=== PATIENT | female | born 1980 | race Caucasian/White ===

== ENCOUNTER 2021-02-14 17:00 | Emergency (ER) | payer MEDICAID ==
--- NOTE | 2021-02-14 18:17 | EDM.PDOC ---
ED HPI GENERAL MEDICAL PROBLEM - General Chief Complaint: Bite:Animal, Insect Stated Complaint: BITTEN BY DOG Time Seen by Provider: 02/14/21 17:44 Source of Information: Reports: Patient History Limitations: Reports: No Limitations - History of Present Illness INITIAL COMMENTS - FREE TEXT/NARRATIVE: 40-year-old female presents the emergency department today with dog bite noted to her left index finger. She states that the injury occurred approximately 1 PM today when she was attempting to break up a dog fight. Patient states that she knows that one of the dogs is up-to-date on his vaccinations however she is unsure on the other. She states she is unsure of her tetanus status. 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 Musculoskeletal History: Reports: Other (See Below) Other Musculoskeletal History: pins to left thumb - Infectious Disease History Infectious Disease History: Reports: None - Past Surgical History Female Surgical History: Reports: D&C Social & Family History - Tobacco Use Tobacco Use Status *Q: Current Every Day Tobacco User Years of Tobacco use: 20 Packs/Tins Daily: 1 - Caffeine Use Caffeine Use: Reports: Coffee, Energy Drinks, Soda, Tea - Recreational Drug Use Recreational Drug Use: No ED ROS GENERAL - Review of Systems Review Of Systems: Comprehensive ROS is negative, except as noted in HPI. ED EXAM, ANIMAL BITE - Physical Exam Exam: See Below Exam Limited By: No Limitations General Appearance: Alert, WD/WN, Mild Distress Ears: Normal External Exam, Hearing Grossly Normal Nose: Normal Inspection Throat/Mouth: Normal Inspection, Normal Lips, Normal Voice, No Airway Compromise Head: Atraumatic, Normocephalic Neck: Normal Inspection, Supple Respiratory/Chest: No Respiratory Distress, No Accessory Muscle Use Cardiovascular: Normal Peripheral Pulses, Regular Rate, Rhythm GI/Abdominal: No Distention (Female) Exam: Deferred Rectal (Female) Exam: Deferred Back Exam: Normal Inspection Extremities: Other (Circumferential laceration noted to left index finger starting just below the knuckle and radiating just above the knuckle circumferentially. Bleeding is controlled.) Neurological: Alert, Oriented, Normal Cognition Psychiatric: Normal Affect, Normal Mood Skin Exam: Normal Color, Warm/Dry Lymphatic: No Adenopathy ED ANIMAL BITE PROCEDURES - Laceration/Wound Repair Left Middle Digit - 2nd (Index) Lac/Wound Length In cm: 8 Appearance: Superficial, Other (Dog bite) Distal NVT: Neuro & Vascular Intact Anesthetic Type: Local Local Anesthesia - Lidocaine (Xylocaine): 1% Plain Local Anesthetic Volume: 5cc Exploration/Debridement/Repair: Multiple Flaps Aligned Closed With: Sutures Suture Size: 4-0 # of Sutures: 8 Suture Type: Nylon, Interrupted Course - Vital Signs Text/Narrative:: As stated above patient presents with a dog bite to her left index finger. Exam reveals circumferential laceration noted just below the knuckle on the dorsal aspect of the left index finger and around the knuckle on the palmar aspect. Patient does have decreased flexion extension strength noted to the left index finger. She suspects that the finger may be broken. Will obtain an x-ray of the left index finger and then have nursing staff clean the wound. Patient will need some surgical repair. Last Recorded V/S: Last Vital Signs Temp 98.7 F 02/14/21 17:50 Pulse 72 02/14/21 17:50 Resp 20 02/14/21 17:50 BP 127/59 L 02/14/21 17:50 Pulse Ox 98 02/14/21 17:50 - Orders/Labs/Meds Orders: Active Orders 24 hr Category Date Time Status Fingers Second Digit Lt F1 [CR] Stat Exams 02/14/21 17:56 Taken Meds: Medications Discontinued Medications Generic Name Dose Route Start Last Admin Trade Name Freq PRN Reason Stop Dose Admin Amoxicillin/Clavulanate Potassium 1 tab 02/14/21 19:18 02/14/21 19:27 Amoxicillin/Clavulanate K 875-125 Mg Tab PO 02/14/21 19:19 1 tab ONETIME ONE Administration Ketorolac Tromethamine 60 mg 02/14/21 19:17 02/14/21 19:27 Ketorolac 60 Mg/2 Ml Sdv IM 02/14/21 19:18 60 mg ONETIME ONE Administration Lidocaine HCl 10 ml 02/14/21 19:17 02/14/21 19:27 Lidocaine 1% 10 Ml Mdv INJECT 02/14/21 19:18 10 ml ONETIME ONE Administration - Radiology Interpretation Free Text/Narrative:: Fracture noted to middle phalanx on left index finger. Formal radiologist report is pending - Re-Assessments/Exams Free Text/Narrative Re-Assessment/Exam: 02/14/21 19:10 I phoned [facility] call and spoke with the hand surgeon, . X-rays had been pushed prior to so he was able to review the patient's x-ray. Case was discussed with , and he states that she will need surgery first thing tomorrow morning. Recommends that we clean up the wound, apply a few sutures and splint. Recommends we give the patient Augmentin 875 mg oral. She will need to be n.p.o. after midnight tonight and be at [facility] emergency department by 8 AM central time. He will then repair the fracture. Discussed this plan with the patient and she verbalizes understanding. Have ordered lidocaine 1%. I will do a digital block on the left index finger and place a few stitches in the laceration. 02/14/21 20:04 Wound was prepped and draped in sterile fashion prior to suturing. Departure - Departure Time of Disposition: 20:06 Disposition: Home, Self-Care 01 Condition: Good Clinical Impression: Dog bite of index finger Qualifiers: Encounter type: initial encounter Qualified Code(s): S61.258A - Open bite of other finger without damage to nail, initial encounter; W54.0XXA - Bitten by dog, initial encounter - Discharge Information Prescriptions: Amoxicillin/Potassium Clav [Augmentin 875-125 Tablet] 1 each PO BID #19 tablet Hydrocodone/Acetaminophen [HYDROcodone-Acetaminophen 5-325 MG] 1 each PO Q6H PRN #10 tab PRN Reason: Pain (Moderate 4-6) Referrals: Mari Briggs, SCRAPER LOADER OPERATOR [Primary Care Provider] - Forms: ED Department Discharge Additional Instructions: You were seen in the emergency department today after sustaining a dog bite to your left index finger. X-rays were completed and you do have a fracture noted. Did discuss the case with the on-call hand surgeon, , at [facility] in [place]. He recommends we cleaned the wound and stitched up and place a splint. Leave the splint in place at all times. Nothing to eat or drink after midnight tonight. You will need to be at the emergency department at [facility] in [place] by 8 AM central time. They will then take you to surgery to repair your finger. While you are in the emergency department you did get an antibiotic. You will need to take this twice daily for the next 10 days time. I have sent a prescription for this antibiotic to [facility] in [place]. I have also sent a prescription for a narcotic pain medication called hydrocodone to [facility] in [place]. You may take 1 tab every 6 hours as needed for moderate pain. Recommend that you take 1 before bed tonight as the digital block will likely be starting to wear off. Keep in mind that this is a narcotic medication and you cannot drive or operate heavy machinery while taking this medication. Should your condition worsen or change, do not hesitate return to the emergency department. Sepsis Event Note (ED) - Focused Exam Vital Signs: Vital Signs Temp Pulse Resp BP Pulse Ox 02/14/21 17:50 98.7 F 72 20 127/59 L 98 - My Orders Last 24 Hours: My Active Orders 02/14/21 17:56 Fingers Second Digit Lt F1 [CR] Stat - Assessment/Plan Last 24 Hours: My Active Orders 02/14/21 17:56 Fingers Second Digit Lt F1 [CR] Stat
[2021-02-14] MEDS ORDERED: Ketorolac 60 MG/2 ML SDV IM ONE (19:17)
[2021-02-14] MEDS ORDERED: Lidocaine 1% 10 ML MDV INJECT ONE (19:17)
[2021-02-14] MEDS ORDERED: Amoxicillin/Clavulanate K 875-125 MG Tab PO ONE (19:18)
--- NOTE | 2021-02-15 09:22 | CR ---
Left second finger: 3 views of the left second finger were obtained. Comparison: No prior study is available. Comminuted fracture is seen within the middle phalanx of the left second finger. Fracture involves the mid and proximal aspect with extension into the articular margin of the PIP joint. Alignment remains close to anatomic. Soft tissue injury is noted. No additional bony abnormality is appreciated within other portions of this finger. Impression: 1. Fracture within the middle phalanx of the left second finger as described above. 2. Soft tissue injury. Diagnostic code #3
== END 2021-02-14 20:35 | disposition home or self-care (01) ==
LOC: JD.ED 17:00
DX: S61.251A Open bite of left index finger without damage to nail, initial encounter (principal); Z72.0 Tobacco use; W54.0XXA Bitten by dog, initial encounter
CPT/HCPCS: 12004; 73140; 96372; 99283; A9270; J1885

== ENCOUNTER 2021-02-15 17:29 | Emergency (ER) | payer MEDICAID ==
[2021-02-15] MEDS ORDERED: HYDROmorphone 1 MG/ML Syringe IM ONE (18:22)
[2021-02-15] MEDS ORDERED: Ketorolac 60 MG/2 ML SDV IM ONE (18:23)
--- NOTE | 2021-02-15 19:37 | EDM.PDOC ---
ED HPI GENERAL MEDICAL PROBLEM - General Chief Complaint: Upper Extremity Injury/Pain Stated Complaint: LEFT HAND COMPLAINT Time Seen by Provider: 02/15/21 18:05 Source of Information: Reports: Patient History Limitations: Reports: No Limitations - History of Present Illness INITIAL COMMENTS - FREE TEXT/NARRATIVE: 40-year-old female presents the emergency department this evening after having surgery to her right index finger this morning. Patient was seen here in this emergency department last evening for a dog bite of her right index finger with large laceration and fracture. She did go to see Jorge in [place] today and had the wound debrided and pins placed in the right index finger. Patient states they did perform a block on that extremity. She states she got about 10 miles out of town and the block started to wear off and pain became extremely severe. She states she took 1 hydrocodone every 1/2 hour x3 tabs and it has not helped her pain at all. She presents to our emergency department with request that we loosen her splint that was placed and medicate her for pain. 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 Musculoskeletal History: Reports: Other (See Below) Other Musculoskeletal History: pins to left thumb;pins to left index finger-dog bite Psychiatric History: Reports: Anxiety - Infectious Disease History Infectious Disease History: Reports: None - Past Surgical History Female Surgical History: Reports: D&C Social & Family History - Tobacco Use Tobacco Use Status *Q: Current Every Day Tobacco User Years of Tobacco use: 3 Packs/Tins Daily: 1 - Caffeine Use Caffeine Use: Reports: Coffee, Energy Drinks, Soda, Tea - Recreational Drug Use Recreational Drug Use: No Review of Systems - Review of Systems Review Of Systems: Comprehensive ROS is negative, except as noted in HPI. ED EXAM, GENERAL - Physical Exam Exam: See Below Exam Limited By: No Limitations General Appearance: Alert, WD/WN, Severe Distress Ears: Normal External Exam, Hearing Grossly Normal Nose: Normal Inspection Throat/Mouth: Normal Inspection, Normal Lips, Normal Voice, No Airway Compromise Head: Atraumatic Neck: Normal Inspection Respiratory/Chest: No Respiratory Distress, No Accessory Muscle Use Cardiovascular: Normal Peripheral Pulses, Regular Rate, Rhythm GI/Abdominal: No Distention (Female) Exam: Deferred Rectal (Female) Exam: Deferred Back Exam: Normal Inspection Extremities: Normal Capillary Refill. No: Normal Inspection (Splint noted to the left upper extremity due to surgery this morning on left index finger), Normal Range of Motion (Decreased range of motion to left index finger), Non- Tender (Tenderness noted to left index finger) Neurological: Alert, Oriented, Normal Cognition Psychiatric: Anxious Skin Exam: Warm, Dry, Normal Color, No Rash, Wound/Incision (Dressing is clean dry and intact. Splint was loosened to left upper extremity.) Lymphatic: No Adenopathy Course - Vital Signs Text/Narrative:: Upon exam, patient is awake alert and oriented but in severe distress due to pain. CMS is positive to left index finger. Splint was loosened and patient did note some relief however she still is having significant amount of discomfort. I have ordered for the patient receive a milligram of Dilaudid IM as well as 60 mg Toradol IM. Last Recorded V/S: Last Vital Signs Temp 98.4 F 02/15/21 18:06 Pulse 70 02/15/21 18:06 Resp 20 02/15/21 18:06 BP 106/48 L 02/15/21 18:06 Pulse Ox 98 02/15/21 18:06 - Orders/Labs/Meds Meds: Medications Discontinued Medications Generic Name Dose Route Start Last Admin Trade Name Freq PRN Reason Stop Dose Admin Hydromorphone HCl 1 mg 02/15/21 18:22 02/15/21 18:47 Hydromorphone 1 Mg/Ml Syringe IM 02/15/21 18:23 1 mg ONETIME ONE Administration Ketorolac Tromethamine 60 mg 02/15/21 18:23 02/15/21 18:47 Ketorolac 60 Mg/2 Ml Sdv IM 02/15/21 18:24 60 mg ONETIME ONE Administration - Re-Assessments/Exams Free Text/Narrative Re-Assessment/Exam: 02/15/21 19:40 Patient states that she has had significant relief of her pain and is requesting to be discharged home. Departure - Departure Time of Disposition: 19:40 Disposition: Home, Self-Care 01 Condition: Good Clinical Impression: Pain, postoperative, acute - Discharge Information Instructions: Pain Medicine Instructions, [id number] Referrals: Mari Briggs DIDACTIC INSTRUCTOR [Primary Care Provider] - Additional Instructions: You were seen in the emergency department today for severe pain noted to left index finger after having surgery this morning. Splint to left hand was loosened. This needs to be remain in place at all times. You did receive pain medication while in the emergency department and this did seem to help significantly. Do not take another pain pill for 4 hours as you did receive a large dose of narcotic pain medication. Recommend taking ibuprofen 600 mg every 6 hours for the discomfort. Be sure to elevate your hand on a pillow when sitting down or at rest as this will reduce swelling and inflammation. Follow- up with your hand surgeon as previously scheduled. Surgery if condition worsen or change, do not hesitate return emergency department. Sepsis Event Note (ED) - Focused Exam Vital Signs: Vital Signs Temp Pulse Resp BP Pulse Ox 02/15/21 18:06 98.4 F 70 20 106/48 L 98
== END 2021-02-15 19:50 | disposition home or self-care (01) ==
LOC: JD.ED 17:29
DX: G89.18 Other acute postprocedural pain (principal); M79.645 Pain in left finger(s); Z72.0 Tobacco use
CPT/HCPCS: 96372; 99283; J1170; J1885